=== PATIENT | female | born 1945 | race Caucasian/White ===

== ENCOUNTER 2017-04-30 10:35 | Inpatient (IN) ==
[~2017-04-30 10:35] MED LIST: ACETAMINOPHEN 500 MG TABLET PO ONE; CLINDAMYCIN PB 900 MG/50 ML BAG IV ONE; DEXAMETHASONE 4 MG/ML INJECTION IVP ONE; EPINEPHrine PF 0.25 MG, BUPIVACAINE 0.25% PF 30 ML, MORPHINE SULFATE 15 MG, KETOROLAC I... OPSITE ONE; FAMOTIDINE PB 20 MG/50 ML BAG IV ONE; LIDOCAINE 1% (10mg/ml) 2mL INJ PF SDV ID ONE; METOCLOPRAMIDE 10mg/2ml INJECTION IVP ONE; ONDANSETRON 4 MG/2 ML INJECTION IVP ONE; SALINE FLUSH 10ml SYRINGE IV PRN; TRANEXAMIC ACID 1,000 MG in NS 100 ML IV ONE
[2017-04-30 11:03] VITALS: BMI 29.9
[2017-04-30] MEDS ORDERED: CEFAZOLIN 1 G INJECTION IVP ONE (11:55)
[2017-04-30] MEDS ORDERED: ANESTHESIA MIXTURE 50 ML IV ONE (12:00)
[2017-04-30] MEDS: LR 1,000 ML IV SCH ×2 (12:25→14:50)
[2017-04-30] MEDS: NOZIN NASAL SWAB NAS ONE ×2 (12:30→12:31)
[2017-04-30] MEDS ORDERED: VANCOMYCIN 1,000 MG INJECTION ONE (12:48)
--- NOTE | 2017-04-30 12:55 | Anesthesia Preoperative Report ---
Anesthesia Preoperative Record - Date and Time Date: 04/30/17 Preoperative Diagnosis: Rt TKA Rev T84.84XD Proposed Procedure: Right knee revision NPO Since Date: 04/30/17 NPO Since Time: 00:00 Allergies/Adverse Reactions: Allergies Allergy/AdvReac Type Severity Reaction Status Date / Time codeine Allergy Intermediate MIGRAIINE Verified 04/30/17 11:10 diazepam Allergy Intermediate GOES CRAZY Verified 04/30/17 11:10 hydrocodone Allergy Intermediate GOES CRAZY Verified 04/30/17 11:10 pentazocine Allergy Intermediate HALLUCINATI Verified 04/30/17 11:10 ON temazepam Allergy Intermediate HALLUCINATI Verified 04/30/17 11:10 ON Penicillins Allergy Unknown Verified 04/30/17 11:10 adhesive tape AdvReac Intermediate Skin Peels Verified 04/30/17 11:10 cephalexin AdvReac Mild Itching Verified 04/30/17 11:46 clindamycin AdvReac Mild ITCHING Verified 04/30/17 11:10 - Vital Signs Vital Signs: Temperature 98.3 F 04/30/17 11:01 Pulse Rate 81 04/30/17 11:36 Respiratory Rate 18 04/30/17 11:01 Blood Pressure 210/115 H 04/30/17 11:01 Pulse Oximetry 99 04/30/17 11:01 Height and Weight: Height 5 ft 5.5 in Weight 82.8 kg Body Mass Index 29.9 - Medications Inpatient Medications: Current Medications Lactated Ringer's (Lactated Ringers) 1,000 mls @ 50 mls/hr IV .Q20H MICHELLE Last Admin: 04/30/17 12:25 Dose: 50 mls/hr Propofol 200 mg/ Esmolol HCl 50 mg/ Ketamine HCl 50 mg/Lidocaine HCl 100 mg/ Magnesium Sulfate 1 g/Dexmedetomidine HCl 15 mcg/Sodium Chloride 50 mls @ 1 mls /hr IV INTRAOP ONE PRN Reason: Protocol Stop: 05/02/17 13:59 Sodium Chloride (Iv Flush) 10 - 80 ml IV PRN PRN PRN Reason: Flushing Home Medications: Home Medications Medication Instructions Recorded Confirmed Type Lutein 20 mg PO DAILY #0 01/20/13 04/16/17 History Fluticasone Propionate [Flonase 1 spray EA NOSTRIL DAILY #0 10/24/15 04/16/17 History Allergy Relief] Benzonatate [Tessalon Perles] 100 mg PO Q6H PRN 04/16/17 04/16/17 History Feverfew 1 cap PO BID 04/16/17 04/30/17 History Flaxseed/Omega3,6,9/Fatty Acid 1 cap PO DAILY 04/16/17 04/30/17 History [Flax Seed Oil 1,300 mg Softgel] Furosemide [Lasix] 20 mg PO PRN 04/16/17 04/30/17 History LORazepam [Ativan] 0.5 mg PO HS 04/16/17 04/30/17 History Levothyroxine Sodium [Levoxyl] 125 mcg PO ACB 04/16/17 04/30/17 History Oxycodone/Acetaminophen 5/325 1 tab PO HS 04/16/17 04/30/17 History [Percocet 5/325] Topiramate [Topamax] 50 mg PO BID 04/16/17 04/30/17 History Zolpidem [Ambien] 10 mg PO HS 04/16/17 04/30/17 History Cholestyramine [Cholestyramine 1 unit PO DAILY 04/29/17 04/30/17 History Resin] Is Patient on Beta Lashawn?: No - Medical History Respiratory: Reports: Asthma (w/o status asthmaticus (disorder) per h&p), Bronchitis (h/o) DENIES: Sleep Apnea Cardiovascular: Reports: Hypertension (no meds), Valvular Heart Disease (pt states she has a leaky mitral valve), Other (palpitations with panic attacks) Gastrointestional: Reports: Gastroesophageal Reflux Disease (tx after fundiplication), Ulcer (PUD), Other (IBS, constipation) Neuro/Musculoskeletal: Reports: HX.MS.OSAR (also osteopenia), Back Problems ( also fibromyalgia, scoliosis), Depression Renal/Endocrine: Reports: Thyroid Disease Other History: Reports: Anesthesia Reactions (hard to wake up; history of severe itching in PACU; migraines) - Surgical History Cardiac Surgeries/Treatments: DENIES: Pacemaker GI Surgery/Treatments: Reports: Appendectomy, Cholecystectomy, Colonoscopy, EGD , Other (hemorroidectomy; Lap Adam) Surgery/Treatment: REPORT: Other (MMK x2) Musculoskeletal Surgery/Tx: Reports: Knee Arthroscopy (bilateral), Total Knee Replacement (RtTKA), Other (MULTIPLE LIPOMAS REOVED FROM ARMS AND LEFT THIGH) Reproductive Surgery/Treatment: Reports: Section (X2), Hysterectomy ( RAZ BSO), Other (breast biopsies) DENIES: Mastectomy Anesthesia Reactions: Headache Hx Family Anesthesia Reaction: No History of Motion Sickness: No - Social History Smoking Status: Never smoker Substance Use Type: does not use Alcohol Intake Frequency: former alcohol drinker - Pertinent Findings Laboratory: CBC and BMP 04/30/17 11:16 BMP 04/30/17 11:16 Sodium 146 H Potassium 3.3 L Chloride 108 H Carbon Dioxide 26 BUN 15.0 Creatinine 0.8 Glucose 92 Calcium 9.4 EKG: Sinus Rhythm - Physical Exam Respiratory Exam: Present: lungs clear, bilateral breath sounds equal Cardiovascular Exam: Present: regular rate and rhythm, no murmur - Airway Assessment Mallampati Score: II TMD: 3 Fingerbreadths Neck Extension: good Overall Assessment: no airway concerns - ASA ASA Score: 2 - Plan Anesthesia: General TIVA, General Inhalation Gases - Discussion Discussion: Discussed risks/options/alternatives of anesthesia and questions answered. Patient consents. Nursing pain assessment noted. Present for Discussion: other (none) Attestation Statement: Prior to the delivery of any anesthetic medication, I examined the patient, developed the plan, obtained the patient's consent and discussed the risk and benefits of the procedure with the patient/guardian. - Additional Information Seen by Anesthesia: Yes
[2017-04-30] MEDS ORDERED: MIDAZOLAM 2mg/2ml INJECTION ONE (13:04)
[2017-04-30] MEDS ORDERED: PROPOFOL 20 ML ONE (13:05)
[2017-04-30] MEDS ORDERED: FentaNYL 250 MCG/5 ML INJECTION ONE (13:42)
[2017-04-30] MEDS ORDERED: VANCOMYCIN 1,000 MG INJECTION IAR ONE (14:49)
[2017-04-30] MEDS ORDERED: ROPIVACAINE 0.5% (5mg/ml) 30ml INJ ONE (15:28)
--- NOTE | 2017-04-30 15:57 | Anesthesia Procedure Note ---
Peripheral Nerve Blockade - Procedure Physician: Jn Poe MD Date: 04/30/17 Surgical Procedure: Right TKR Discussion: Discussed risks/options/alternatives of anesthesia and questions answered. Patient consents. Nursing pain assessment noted. Block Start: 15:42 Block Stop: 15:46 Blocked Employed: Adductor Canal Indication: Post-Operative Pain Approach: Right Side Confirmed Position: Supine Patient: Consent, Risks/Benefits Discussed, Informed, Post Block Act. Discussed IV Sedation: No Initial Vital Signs: Temperature 98.3 F 04/30/17 11:01 Temperature Source Oral 04/30/17 11:01 Pulse Rate 80 04/30/17 11:01 Respiratory Rate 18 04/30/17 11:01 Blood Pressure 210/115 H 04/30/17 11:01 Blood Pressure Mean 146 04/30/17 11:01 Blood Pressure Position Sitting 04/30/17 11:01 Pulse Oximetry 99 04/30/17 11:01 Oxygen Delivery Method 04/30/17 11:01 Post Vital Signs: Temperature 97.1 F 04/30/17 15:39 Pulse Rate 84 04/30/17 15:39 Respiratory Rate 16 04/30/17 15:39 Blood Pressure 177/93 H 04/30/17 15:39 Pulse Oximetry 95 04/30/17 15:39 Initial Pain Pain Score: 0 Post Block Pain Score: 0 Prep: Chlorhexadine/ETOH Ultrasound Used?: Yes - Nerve Simulator Paresthesia/Pain: None - Injectate Ropivacaine (%): 0.5 Ropivacaine (mL): 15 Was Epi 1:200,000 Used?: No Injection: Injection made incrementally with constant monitoring and aspiration every 5 ml
[2017-04-30] MEDS ORDERED: LABETALOL 100mg/20ml INJECTION IVP ONE (16:14)
--- NOTE | 2017-04-30 16:18 | XRay Report ---
Indication: postoperative image PROCEDURE: XR knee RT 2V: Encounter: Initial Comparison: February 20, 2017 Findings: Postoperative changes of right total knee replacement are seen. There is expected postoperative subcutaneous gas. No evidence of hardware failure or acute fracture. No retained radiopaque surgical instruments or sponges. Overlying material causing artifact. Impression: New right total knee prosthesis without evidence of immediate complication. .
--- NOTE | 2017-04-30 16:40 | Anesthesia Postoperative Note ---
- Date and Time Date: 04/30/17 Time: 16:39 - Status Patient Participated in Evaluation: Patient Participated in Person Vital Signs: Temperature 97.1 F 04/30/17 15:39 Pulse Rate 78 04/30/17 16:20 Respiratory Rate 15 04/30/17 16:20 Blood Pressure 195/102 H 04/30/17 16:20 Pulse Oximetry 98 04/30/17 16:20 Respiratory Function: Airway Patent Cardiovascular Function: Regular Pulse EKG: Sinus Rhythm Mental Status: Alert and Oriented Pain Intensity: 3 Hydration: IV Infusing Complications During Recover: None Apparent Post Anesthesia Care Notes: pts bp elevated but lower than preopertive bp. Does not take bp meds at home. - Follow-Up Instructions Instructions: Per Surgeon
[2017-04-30] MEDS ORDERED: LORazepam 1 MG TABLET PO PRN (17:50)
[2017-04-30] MEDS ORDERED: NOZIN NASAL SWAB NAS ONE (17:50)
[2017-04-30] MEDS ORDERED: DiphenhydrAMINE 50 MG/ML INJECTION IVP PRN (17:50)
[2017-04-30] MEDS ORDERED: ONDANSETRON 4 MG/2 ML INJECTION IVP PRN (17:50)
[2017-04-30] MEDS: NS 1,000 ML IV SCH (17:52)
[2017-04-30] MEDS: ACETAMINOPHEN 325 MG TABLET PO SCH ×2 (17:52→22:28)
[2017-04-30] MEDS ORDERED: HYDRALAZINE 20 MG/ML INJECTION IVP PRN (18:24)
--- NOTE | 2017-04-30 19:36 | Consult Note ---
Consult Information - Data of Consult Consult date: 04/30/17 Requesting Physician: Jn Poe MD Primary Care Provider: Roman Garcia MD Family Provider: Roman Garcia MD - Consult Narrative Reason for consult: Hypertension History of present illness: Ernestina is a 71 yr old female who was admitted this morning under the care of Dr Poe for a planned Right total knee revision. Pre-operatively this morning her blood pressure was elevated at 210/115. She declined antihypertensives, she tolerated the procedure well. However, in PACU postoperatively became hypertensive again 190s to 200s over 100. She was given a one-time dose of labetalol with minimal response. Given persistent hypertension. The hospitalist services were consulted for further evaluation and treatment. As seen once she has return to the surgical unit with nursing staff at the bedside. She reports long-standing history of hypertension and she removed herself from all of her antihypertensives approximately 3 years ago and she felt that they were causing her blood pressure to increase. She reports her and her primary care provider, Dr. Garcia came to a "agreement" that her goal blood pressure would be 140-160/80-100. Patient is consistently adamant that she "knows her body better than anyone else". At time of examination we discussed risks of patient's blood pressure been sustained over 200. She is willing to try one-time dose of hydralazine IV. She feels that she is getting "geared up" for an anxiety-panic attack, and she does request her evening dose of Ativan during examination. She reports having auditory hallucinations generally in the presence of a "quacking duck". It is at this time she knows her blood pressure is extremely elevated and this often triggers anxiety and migraine. Patient denies having any pain, dizziness, lightheadedness, visual changes, shortness of breath, chest pain, GI concerns. She does go into extensive detail regarding political conspiracy theories and current book that she is enjoying. We discussed the importance of blood pressure management overnight. She feels that once she has calmed herself down and has taken her Ambien at at bedtime her blood pressure will be fine. Past Medical History Hypertension Chronic back pain Asthma Anxiety Fibromyalgia GERD with duodenal ulcer High cholesterol Hypothyroidism History of migraines Insomnia IBS Osteoarthritis Restless leg syndrome Macular degeneration Surgical History: Colonoscopy, X2, Rt knee scope 2009, Rt TKA 2009, Lt knee scope 2012, Cholecystectomy 2006, Breast Biopsy X4, CTR 1995 . EGD-2014 , appendectomy, cholecystectomy, RAZ- BSO Family History Updates: Mother- Thyroid disease,Colon cancer,Bleeding disorder. Father- Heart failure,High cholesterol, High blood pressure,Heart attack - Social History Smoking status: Never smoker Substance use type: does not use Alcohol intake frequency: does not drink Housing: house Current residence: Apartment/Private Home Social history: Primary care provider, Dr. Garcia Review of Systems All systems PM: 10-point ROS was reviewed, no additional remarkable complaints except Review of systems: At time of examination. Patient denies all review of systems other than feeling anxious - Psychiatric Psychiatric: Present: as per HPI, anxiety Medications Home Medications Medication Instructions Recorded Confirmed Type Lutein 20 mg PO DAILY #0 01/20/13 04/16/17 History Fluticasone Propionate [Flonase 1 spray EA NOSTRIL DAILY #0 10/24/15 04/16/17 History Allergy Relief] Benzonatate [Tessalon Perles] 100 mg PO Q6H PRN 04/16/17 04/16/17 History Feverfew 1 cap PO BID 04/16/17 04/30/17 History Flaxseed/Omega3,6,9/Fatty Acid 1 cap PO DAILY 04/16/17 04/30/17 History [Flax Seed Oil 1,300 mg Softgel] Furosemide [Lasix] 20 mg PO PRN 04/16/17 04/30/17 History LORazepam [Ativan] 0.5 mg PO HS 04/16/17 04/30/17 History Levothyroxine Sodium [Levoxyl] 125 mcg PO ACB 04/16/17 04/30/17 History Oxycodone/Acetaminophen 5/325 1 tab PO HS 04/16/17 04/30/17 History [Percocet 5/325] Topiramate [Topamax] 50 mg PO BID 04/16/17 04/30/17 History Zolpidem [Ambien] 10 mg PO HS 04/16/17 04/30/17 History Cholestyramine [Cholestyramine 1 unit PO DAILY 04/29/17 04/30/17 History Resin] Allergies Allergy/AdvReac Type Severity Reaction Status Date / Time codeine Allergy Intermediate MIGRAIINE Verified 04/30/17 11:10 diazepam Allergy Intermediate GOES CRAZY Verified 04/30/17 11:10 hydrocodone Allergy Intermediate GOES CRAZY Verified 04/30/17 11:10 pentazocine Allergy Intermediate HALLUCINATI Verified 04/30/17 11:10 ON temazepam Allergy Intermediate HALLUCINATI Verified 04/30/17 11:10 ON Penicillins Allergy Unknown Verified 04/30/17 11:10 adhesive tape AdvReac Intermediate Skin Peels Verified 04/30/17 11:10 cephalexin AdvReac Mild Itching Verified 04/30/17 11:46 clindamycin AdvReac Mild ITCHING Verified 04/30/17 11:10 Exam Vital Signs: Temperature 98.3 F 04/30/17 17:04 Pulse Rate 64 04/30/17 18:55 Respiratory Rate 17 04/30/17 17:00 Blood Pressure 213/98 H 04/30/17 18:55 Pulse Oximetry 98 04/30/17 18:30 Height/Weight/BMI: Height 1.66 m Weight 82.8 kg Body Mass Index 29.9 - Constitutional Present: no acute distress, well nourished, well developed - Routine HEENT Exam Eye: Present: EOMI ENT: Present: mucous membranes moist, dentition normal - Routine Respiratory Exam Present: CTA bilaterally. Absent: wheezes - Routine Cardiovascular Exam Present: RRR, S1, S2. Absent: murmur - Routine Abdominal Exam Present: soft, normoactive bowel sounds, non distended. Absent: tenderness - Routine Extremities Exam Present: pulses intact - Routine Back/Spine/Pelvis Exam Back/Spine: Present: full ROM - Routine Skin Exam Present: intact, dry, warm - Routine Neurological Exam Present: alert, oriented X3, CN II-XII intact, vision grossly intact, hearing grossly intact - Routine Psychiatric Exam Present: cooperative, anxious Results - Labs CBC & Chem 7: 04/30/17 11:16 Assessment and Plan (1) Uncontrolled hypertension Current visit: Yes Status: Acute (2) S/P revision of total knee Current visit: Yes Status: Acute Assessment and Plan: Impression Uncontrolled hypertension Status post knee revision-right Hypernatremia Hypokalemia Anxiety Hyperlipidemia Hypothyroidism Fibromyalgia Headache-RLL 04/30/17 Plan Orthopedic management as per Dr. Poe Lengthy, detailed conversation is had with patient regarding uncontrolled hypertension and increased risk of stroke. Patient is quite adamant that she is not willing to take medication, although she does consent to a one-time dose of hydralazine 10 milligrams IV during examination. She feels that her uncontrolled hypertension is more related to her anxiety and this current environment She did take oral Ativan 1 milligram during examination. At this point, we would recommend a goal blood pressure less than 170 systolic. Encourage use of hydralazine 10 milligrams IV to manage this. Recommend taking all blood pressures manually as patient feels this is more accurate representation of current blood pressure. Postoperative orders reviewed. Patient does have scheduled Decadron IV, This may rise blood pressure. Regarding hypokalemia, will give patient a one-time dose of oral potassium supplementation. Will recheck BMP tomorrow morning. The hospitalist services will continue to follow patient for management of her hypertension during her stay. At time of discharge medical care will return to primary care provider, Dr. Garcia DVT Prophylaxis: SCD's Resuscitation Status: Full Code - Time spent with patient Time with patient PN: 35 minutes - Physician Narrative Physician: Annette Carreon MD Narrative: Date: 04/30/17 Time: 2209 I have independently evaluated and examined this patient. I reviewed the chart, the patient's history, and the FEED RESEARCH TECHNICIAN/PA's documented findings as above. We discussed and formulated the assessment and plan as above with additions as below: Mrs. Mejia was seen after arriving on the surgical unit early this evening after discussing case with Irvin HUNT. The patient reiterated her past experience with antihypertensives causing her blood pressure today increase (in addition to her belief that she has paradoxic response to many classes of medications) and concern that blood pressure medications will trigger migraines. She reports that she had already started to have a headache when I saw her although she denied visual changes. I pointed out that sustained systolic blood pressures greater than 200 are associated with headache and I'm not surprised by that development. She recalls having previously taken propranolol and some Dyazide combination but could not recall the side effects she experienced. It is noted that the patient received 10 mg dexamethasone preoperatively today and is scheduled for additional dexamethasone tonight. NAD, alert, talkative/anxious Respirations nonlabored, breath sounds clear Regular cardiac rhythm, S1-S2 Extremities without edema Manual blood pressure taken while I was present-213/98 Agree with trial of hydralazine/Ativan for management. Stroke risk discussed with patient when I visited with her in addition to possibility that headache is due to sustained systolic hypertension rather than medications. Steroids may be contributing to sustained hypertension seen today. Outpatient records reviewed-last truly normal blood pressure (126/80) was in September 2015; subsequently blood pressures have consistently had systolic readings above 150 in the office although patient has reported normal blood pressure readings (undefined) as an outpatient during that time. At high risk for complications. Hospital Course Summary Disclaimer: The visit summary below is not to be considered part of the above Progress Note. Hospital Course: Impression Uncontrolled hypertension Status post knee revision-right Hypernatremia Hypokalemia Anxiety Hyperlipidemia Hypothyroidism Fibromyalgia Plan Orthopedic management as per Dr. Poe Lengthy, detailed conversation is had with patient regarding uncontrolled hypertension and increased risk of stroke. Patient is quite adamant that she is not willing to take medication, although she does consent to a one-time dose of hydralazine 10 milligrams IV during examination. She feels that her uncontrolled hypertension is more related to her anxiety and this current environment She did take oral Ativan 1 milligram during examination. At this point, we would recommend a goal blood pressure less than 170 systolic. Encourage use of hydralazine 10 milligrams IV to manage this. Recommend taking all blood pressures manually as patient feels this is more accurate representation of current blood pressure. Postoperative orders reviewed. Patient does have scheduled Decadron IV, This may rise blood pressure. Regarding hypokalemia, will give patient a one-time dose of oral potassium supplementation. Will recheck BMP tomorrow morning. The hospitalist services will continue to follow patient for management of her hypertension during her stay. At time of discharge medical care will return to primary care provider, Dr. Garcia
[2017-04-30] MEDS ORDERED: SENNOSIDES 8.6 MG TABLET PO SCH (21:00)
[2017-04-30] MEDS ORDERED: ZOLPIDEM 10 MG TABLET PO SCH (21:00)
[2017-04-30] MEDS: CHOLESTYRAMINE LIGHT 4 G PACKET PO SCH (22:25)
[2017-04-30] MEDS: DEXAMETHASONE 20 MG/5 ML INJECTION IVP SCH (22:27)
[2017-04-30] MEDS: NOZIN NASAL SWAB NAS SCH (22:27)
[2017-04-30] MEDS: DOCUSATE SODIUM 100 MG CAPSULE PO SCH (22:29)
[2017-04-30] MEDS: TOPIRAMATE 25 MG TABLET PO SCH (22:30)
[2017-04-30] MEDS: ASPIRIN *EC* 81 MG TABLET PO SCH (22:30)
[2017-04-30] MEDS: CEFAZOLIN 2 G in NS 100 ML IV SCH (22:35)
[2017-04-30] MEDS: Oxycodone *IR* 5 MG TABLET PO PRN (22:40)
[2017-04-30] MEDS: LEVOTHYROXINE 125 MCG TABLET PO SCH (22:40)
[2017-05-01] MEDS: DiphenhydrAMINE 25 MG CAPSULE PO PRN ×3 (01:42→16:07)
[2017-05-01] MEDS: DEXAMETHASONE 20 MG/5 ML INJECTION IVP SCH (05:09)
[2017-05-01] MEDS: CEFAZOLIN 2 G in NS 100 ML IV SCH (05:09)
[2017-05-01] MEDS: Oxycodone *IR* 5 MG TABLET PO PRN ×3 (05:16→16:06)
[2017-05-01] MEDS: NOZIN NASAL SWAB NAS SCH ×2 (05:24→13:11)
[2017-05-01] MEDS: LEVOTHYROXINE 125 MCG TABLET PO SCH (05:30)
--- NOTE | 2017-05-01 08:00 | Operative Note ---
DATE OF PROCEDURE 04/30/2017 PREOPERATIVE DIAGNOSIS Right total knee arthroplasty instability. POSTOPERATIVE DIAGNOSIS Right total knee arthroplasty instability. PROCEDURE Spacer exchange, right total knee arthroplasty. SURGEON Jn Poe MD DATA MANAGEMENT Irvin Velasquez PA-C COMPLICATIONS None. ANESTHESIA General. EBL AND FLUIDS Please see [facility] records. DESCRIPTION OF PROCEDURE Mrs. Mejia and her right knee were identified and marked in the preoperative holding area. She was brought back to the operating suite and placed spine on the operating table. She was placed under general anesthesia. The right lower extremity was prepped and draped in my normal sterile fashion. Time-out was performed. The knee was taken through a range motion. She had increased laxity in flexion and she did slightly hyperextend. An anterior midline incision was utilized. Sharp dissection was carried down to the capsule and then a medial parapatellar arthrotomy was performed. The knee components themselves looked to be in good condition without signs of excessive wear and no signs of loosening. The patient did have quite a bit of anterior drawer sign with the knee flexed past 90 degrees. I removed her previous spacer. Some minor scar tissue was removed from the medial aspect of the knee. I then trialed with a 12 mm and a 14 mm spacer. The 14 felt a little tight but 12 felt much better. She still could get a full extension and she had more stability with anterior stitch bonding machine drawer in 90 degrees flexion and 110 degrees flexion. The patella continued to track well. The knee was thoroughly irrigated and the final 12 medial pivot spacer was placed. I then again fully irrigated the knee. Joint cocktail was injected into the soft tissues. 1 g of vancomycin powder was placed into the knee joint and the arthrotomy was closed with #1 Vicryl. The subcutaneous tissue was closed with 2-0 Vicryl followed by running 4-0 Monocryl followed by Dermabond and sterile dressing. She was then allowed to awaken from general anesthesia and taken to the recovery room under the care of Anesthesia. She tolerated the procedure well and there were no complications. MARY
--- NOTE | 2017-05-01 08:50 | Orthopedic Progress Note ---
Date: Date: 05/01/17 Time: 846 Subjective/Severity of Illness: Ernestina is doing very well this AM. Denies much knee pain. She has been mobile with good tolerance. Denies CP, cough, dyspnea, SOA or other concerns. BPs are improved this AM. See hospitalist consult note. Denies headache. She is hopeful to go home today. She reports the knee feels more stable. Orthopedic Objective PO Vital signs: Temperature 98.1 F 05/01/17 04:00 Pulse Rate 85 05/01/17 07:44 Respiratory Rate 18 05/01/17 07:44 Blood Pressure 170/80 H 05/01/17 07:44 Pulse Oximetry 100 05/01/17 07:44 Height and Weight: Height 5 ft 5.5 in Weight 190 lb 4.143 oz Body Mass Index 29.9 - Constitutional General Appearance: Present: alert, cooperative, no acute distress - Respiratory Exam Present: non-labored - Extremities Exam Extremities: Present: pulses intact. Absent: calf tenderness - Knee Exam Knee Exam: Present: ROM (0-120 degrees this AM.) - Surgical Site Incision: Mepilex dressing intact, no drainage - Integumentary Exam Present: pink, warm, dry - Neurological Exam Present: no deficits - Psychiatric Exam Present: alert, normal affect - Labs Result Diagrams: 05/01/17 04:14 05/01/17 04:14 Abnormal lab results 04/30/17 05/01/17 Range/Units 11:16 04:14 Sodium 146 H (134-144) MEQ/L Potassium 3.3 L (3.6-5) MEQ/L Chloride 108 H 110 H (98-107) MEQ/L Carbon Dioxide 21 L (22-30) MEQ/L Glucose 153 H (65-110) MG/DL Calculated Osmolality 282 H (261-280) MOSM/KG H & H 05/01/17 Range/Units 04:14 Hgb 13.5 (12-16) GM/DL Hct 42.3 (36-46) % Orthopedic Assessment and Plan (1) Painful total knee replacement, right Status: Acute Assessment and Plan: Pt feels the knee is more stable. BP improved this AM. Will f/u with Dr Garcia as outpatient. She has been mobile with good tolerance. Aspirin and SCDs for DVT coverage. Continue ASA for 6 weeks. PT / OT to work with exercises and discharge routine. CM for discharge needs. Follow up in 3 weeks. - Anticoagulation Therapy Anticoagulation: ASA 81 mg PO BID x6 weeks Hospital Course Summary Disclaimer: The visit summary below is not to be considered part of the above Progress Note. Hospital Course: Impression Uncontrolled hypertension Status post knee revision-right Hypernatremia Hypokalemia Anxiety Hyperlipidemia Hypothyroidism Fibromyalgia Plan Orthopedic management as per Dr. Poe Lengthy, detailed conversation is had with patient regarding uncontrolled hypertension and increased risk of stroke. Patient is quite adamant that she is not willing to take medication, although she does consent to a one-time dose of hydralazine 10 milligrams IV during examination. She feels that her uncontrolled hypertension is more related to her anxiety and this current environment She did take oral Ativan 1 milligram during examination. At this point, we would recommend a goal blood pressure less than 170 systolic. Encourage use of hydralazine 10 milligrams IV to manage this. Recommend taking all blood pressures manually as patient feels this is more accurate representation of current blood pressure. Postoperative orders reviewed. Patient does have scheduled Decadron IV, This may rise blood pressure. Regarding hypokalemia, will give patient a one-time dose of oral potassium supplementation. Will recheck BMP tomorrow morning. The hospitalist services will continue to follow patient for management of her hypertension during her stay. At time of discharge medical care will return to primary care provider, Dr. Garcia
[2017-05-01] MEDS ORDERED: POLYETHYL GLYCOL 3350 17gm PACKET PO SCH (09:00)
[2017-05-01] MEDS ORDERED: FLUTICASONE NASAL SPRAY 50mcg EA NOSTRIL SCH (09:00)
--- NOTE | 2017-05-01 09:01 | Discharge Summary ---
Orthopedic Discharge Info Date of admission: 04/30/17 10:52 Anticipated date of discharge: 05/01/17 Primary care physician: Roman Garcia MD Attending Physician: Jn Poe MD Consults: 04/30/17 10:47 Consult to Anesthesiology [CONS] Routine Reason For Exam: Preoperative Assessment 04/30/17 16:55 Physician Consult [CONS] Routine Consulting Provider: Annette Carreon Reason For Exam: Hypertension Ordering Provider has Notified Sammying Machine Operator: Yes 04/30/17 17:50 Case Management Consult [CONS] Routine Reason For Exam: Discharge Planning DME-Walker [CONS] Routine Height: 5 ft 5.5 in Weight: 182 lb 8.684 oz Total Joint Outpatient Therapy [CONS] Routine Comment: Remove dressing in 2 weeks - Discharge Diagnosis (1) Painful total knee replacement, right Status: Acute - Procedures Procedures: Procedures Total knee replacement (06/07/09) Revision of poly space component of R TKA 04/30/17. - Laboratory Result Diagrams: 05/01/17 04:14 05/01/17 04:14 Laboratory: Abnormal lab results 04/30/17 05/01/17 Range/Units 11:16 04:14 Sodium 146 H (134-144) MEQ/L Potassium 3.3 L (3.6-5) MEQ/L Chloride 108 H 110 H (98-107) MEQ/L Carbon Dioxide 21 L (22-30) MEQ/L Glucose 153 H (65-110) MG/DL Calculated Osmolality 282 H (261-280) MOSM/KG H & H 05/01/17 Range/Units 04:14 Hgb 13.5 (12-16) GM/DL Hct 42.3 (36-46) % Orthopedic Discharge HPI - HPI Comments Do was admitted for a painful right TKA that was found to be unstable. Her work up did not suggest loosening of the implants or infection. It was felt that revising the spacer may correct her instability. Details may be found in the admission H&P. Orthopedic Hospital Course Hospital course: 05/01/17 08:59 After appropriate preoperative clearance and signing of operative consent, the patient was given IV antibiotics, according to orthopedic protocol. The patient was taken to the operating room and underwent exchange of the poly spacer to a thicker implant in her previous Rt total knee . Following surgery, antibiotics were discontinued less than 24 hours according to joint protocol. Appropriate anticoagulants were initiated and SCDs added for DVT prevention. She had significant hypertension both before and after surgery for which the hospitalist service was consulted to manage. She will f/u with Dr Garcia after discharge for this problems. She had a migraine headache but felt comfortable going home to manage this. The dressing was clean, dry, and intact. Pain control was obtained via multimodal approach. Bowel motivation addressed with scheduled and PRN medications. Early mobilization was initiated through PT services. Discharge arrangements made by a collaborative effort between the patient and Case Management. Follow-up is scheduled in 2-3 weeks. Discharge instructions given by orthopedic providers and nursing staff at discharge. Discharge condition was good. 05/01/17 15:51 Care extended to > 2 midnight stays?: No Discharge Plan - Med Rec/Dispo Referrals/Follow Up: Jn Poe MD [Physician] - 05/22/17 10:30 am Hakeem Instructions: [facility] Postop Instructions Additional Instructions: [facility] ON 05/02/2017 AT 4:00PM FOR PHYSICAL THERAPY EVAL. PHONE [phone] Prescriptions: New Acetaminophen [Tylenol] 650 mg PO QID tab Aspirin *EC* [Ecotrin] 81 mg PO BID tab Docusate Sodium [Colace] 100 mg PO BID cap Milk of Magnesia [Mom] 30 ml PO DAILY udc Oxycodone *IR* [Roxicodone *Ir*] 5 - 15 mg PO Q3H PRN #50 tab PRN Reason: Breakthrough Pain PEG 3350 17gm PACKET [Miralax] 17 gm PO DAILY packet Hydralazine [Apresoline] 1 tab PO [facility] #120 tab Continue Lutein 20 mg PO DAILY #0 Levothyroxine Sodium [Levoxyl] 125 mcg PO ACB Feverfew 1 cap PO BID Furosemide [Lasix] 20 mg PO PRN LORazepam [Ativan] 0.5 mg PO HS Topiramate [Topamax] 50 mg PO BID Zolpidem [Ambien] 10 mg PO HS Benzonatate [Tessalon Perles] 100 mg PO Q6H PRN PRN Reason: Cough Cholestyramine [Cholestyramine Resin] 1 unit PO DAILY Fluticasone Propionate [Flonase Allergy Relief] 1 spray EA NOSTRIL DAILY #0 Flaxseed/Omega3,6,9/Fatty Acid [Flax Seed Oil 1,300 mg Softgel] 1 cap PO DAILY Discontinued Oxycodone/Acetaminophen 5/325 [Percocet 5/325] 1 tab PO HS - Disposition 01 Discharged Home, Self-Care - Dismissal Complete Discharge Instructions are:: Complete, Incomplete
[2017-05-01] MEDS: ACETAMINOPHEN 325 MG TABLET PO SCH (09:18)
[2017-05-01] MEDS: ASPIRIN *EC* 81 MG TABLET PO SCH ×2 (09:19→13:10)
[2017-05-01] MEDS: DOCUSATE SODIUM 100 MG CAPSULE PO SCH (09:19)
[2017-05-01] MEDS: TOPIRAMATE 25 MG TABLET PO SCH (09:20)
[2017-05-01] MEDS: CHOLESTYRAMINE LIGHT 4 G PACKET PO SCH (09:23)
[2017-05-01] MEDS ORDERED: LORazepam 0.5 MG TABLET PO PRN (10:58)
[2017-05-01] MEDS: ACETAMINOPHEN 500 MG TABLET PO SCH ×2 (11:08→16:05)
[2017-05-01 11:16] VITALS: PULSE 70
[2017-05-01] MEDS: NS 1,000 ML IV SCH (11:42)
[2017-05-01] MEDS: HYDRALAZINE 10 MG TABLET PO SCH ×2 (13:10→17:59)
[2017-05-01] MEDS ORDERED: SENNOSIDES 8.6 MG TABLET PO PRN (15:29)
[2017-05-01 15:49] VITALS: BP 166/78; RESP 14; TEMP 98.3; O2SAT 100
--- NOTE | 2017-05-01 16:05 | Progress Note ---
- Date 05/01/17 Subjective: Patient was seen sitting in her bed this morning. She reports the hydralazine worked for her blood pressure and she didn't have any side effects. She would be interested in trying this at home but states she will only take 5 mg once a day to start with as she doesn't want to cause a migraine. Apparently, she has had this problem with previous blood pressure medications. She currently has a headache, but reports it is "not bad." She has no chest pain, shortness of breath, nausea or vomiting. Objective Vital signs: Temperature 98.3 F 05/01/17 15:42 Pulse Rate 70 05/01/17 15:42 Respiratory Rate 14 05/01/17 15:42 Blood Pressure 166/78 H 05/01/17 15:42 Pulse Oximetry 100 05/01/17 15:42 Height/Weight/BMI: Height 1.66 m Weight 86.3 kg Body Mass Index 29.9 - Constitutional Present: no acute distress, well nourished, well developed - Routine Respiratory Exam Present: CTA bilaterally. Absent: wheezes - Routine Cardiovascular Exam Present: RRR, murmur - Routine Abdominal Exam Present: soft, normoactive bowel sounds, non distended. Absent: tenderness - Routine Extremities Exam Present: no edema, normal capillary refill - Routine Skin Exam Present: dry, warm - Routine Neurological Exam Present: alert, oriented X3 - Routine Lymphatic Exam Lymphatic: Absent: adenopathy - Routine Psychiatric Exam Present: normal affect, cooperative Results - Labs CBC & Chem 7: 05/01/17 04:14 05/01/17 04:14 Assessment and Plan (1) Uncontrolled hypertension Status: Acute (2) S/P revision of total knee Status: Acute Assessment and Plan: Impression Hypertension Status post knee revision-right Hypernatremia Hypokalemia Anxiety Hyperlipidemia Hypothyroidism Fibromyalgia Headache Plan Orthopedic management as per Dr. Poe Patient being discharged today. Her blood pressure came down nicely after the IV hydralazine last evening. She is interested in trying this at home, but is not interested in taking it 4 times a day as is recommended; however, in her case, having her take something as opposed to nothing, is a start. She was given a prescription for 10 mg to take 4 times a day, she plans on taking a half a pill daily to start with. She will follow-up with Dr. Garcia. - Physician Narrative Physician: Annette Carreon MD Narrative: Date: 05/01/17 Time: 2039 I have independently evaluated and examined this patient. I reviewed the chart, the patient's history, and the PNEUMATIC SYSTEMS OPERATOR/PA's documented findings as above. We discussed and formulated the assessment and plan as above with additions as below: Mrs. Mejia was seen late this morning and again late this afternoon prior to discharge. Headache had intensified to a fairly severe migraine by late morning when she expressed frustration that her herbal product was not available for use alternating with narcotics as that is her typical regimen. Tylenol was switched from 325 mg to 500 mg per patient request. She reported some photophobia and diplopia which she attributed to the antibiotic she was receiving because she always has double vision when she receives higher dose antibiotics IV. She felt that multiple individuals wearing perfume and fragrant lotions was contributing to the headache. When reevaluated later in the day the headache was a little bit better. It's noted that she took hydralazine at both noon and prior to discharge. Fatigued-appearing female but alert and fluent speech, anxious EOMI, facial structure symmetric Respirations nonlabored, good airflow, breath sounds clear Moving upper extremities symmetrically Blood pressure is improved from yesterday and she is tolerated hydralazine thus far. Plan discharge on hydralazine as described above. Systolic blood pressure today generally about 165. Patient will continue usual medications for management of recurrent migraines at discharge-she did not describe this migraine is being atypical. Hospital Course Summary Disclaimer: The visit summary below is not to be considered part of the above Progress Note. Hospital Course: Impression Uncontrolled hypertension Status post knee revision-right Hypernatremia Hypokalemia Anxiety Hyperlipidemia Hypothyroidism Fibromyalgia Plan Orthopedic management as per Dr. Poe Lengthy, detailed conversation is had with patient regarding uncontrolled hypertension and increased risk of stroke. Patient is quite adamant that she is not willing to take medication, although she does consent to a one-time dose of hydralazine 10 milligrams IV during examination. She feels that her uncontrolled hypertension is more related to her anxiety and this current environment She did take oral Ativan 1 milligram during examination. At this point, we would recommend a goal blood pressure less than 170 systolic. Encourage use of hydralazine 10 milligrams IV to manage this. Recommend taking all blood pressures manually as patient feels this is more accurate representation of current blood pressure. Postoperative orders reviewed. Patient does have scheduled Decadron IV, This may rise blood pressure. Regarding hypokalemia, will give patient a one-time dose of oral potassium supplementation. Will recheck BMP tomorrow morning. The hospitalist services will continue to follow patient for management of her hypertension during her stay. At time of discharge medical care will return to primary care provider, Dr. Garcia
[2017-05-02] MEDS ORDERED: BISACODYL 10 MG SUPPOSITORY RECTALLY SCH (20:00)
== END 2017-05-01 18:00 | disposition home or self-care (01) | DRG 560 ==
LOC: NMC.PERIOP 10:35 → SRG 17:06
PROVIDERS: ADMIT Orthopaedic Surgery; ATTEND Orthopaedic Surgery

== ENCOUNTER 2017-07-29 17:42 | Inpatient (IN) ==
[2017-07-29] MEDS ORDERED: SALINE FLUSH 10ml SYRINGE IVF PRN (18:36)
[2017-07-29] MEDS ORDERED: LABETALOL 100mg/20ml INJECTION IVP ONE ×3 (18:38→20:46)
--- NOTE | 2017-07-29 19:07 | Emergency Department Report ---
Dizziness HPI - General Chief Complaint: Dizziness <Alia Grider 07/29/17 19:17> Stated Complaint: dizzy, tingling in arms, high bp <Alia Grider 07/29 19:17> Source: patient, family <Alia Grider 07/29/17 19:17> Mode of arrival: ambulatory <Alia Grider 07/29/17 19:17> Limitations: no limitations <Alia Grider 07/29/17 19:17> - History of Present Illness HPI Narrative: Pt presents with a variety of complaints including headache, HTN, vision changes , and feeling as though her "head is spinning". Pt noted onset of symptoms to be late afternoon. She took an Ativan and tried to rest without success. Pt is reporting photophobia to her left eye. She states when left eye hurts it is a food allergy headache but when her right eye hurts it is a stress migraine Pt is hyperverbal and it is difficult for her to stay on topic. Daughter reports this is very unusual for patient and pt reported to her she has no recollection of about 2 hours from this afternoon. <Alia Grider 07/29/17 21:47> MD complaint: dizziness <Alia Grider 07/29/17 19:17> Onset (ago): hour(s) <Alia Grider 07/29/17 19:17> Timing: sudden onset <Alia Grider 07/29/17 19:17> Description: lightheadedness <Alia Grider 07/29/17 19:17> History of similar episodes: No <Alia Grider 07/29/17 19:17> History of trauma: No <Alia Grider 07/29/17 19:17> - Related Data Home Medications Medication Instructions Recorded Confirmed Lutein 20 mg PO DAILY #0 01/20/13 07/29/17 Fluticasone Propionate [Flonase 1 spray EA NOSTRIL BID #0 10/24/15 07/29/17 Allergy Relief] Flaxseed/Omega3,6,9/Fatty Acid 1 cap PO BID 04/16/17 07/29/17 [Flax Seed Oil 1,300 mg Softgel] Furosemide [Lasix 20 mg Tab] 10 mg PO PRN PRN 04/16/17 07/29/17 Zolpidem [Ambien] 5 mg PO HS 04/16/17 07/29/17 Bisacodyl [Laxative] 5 mg PO HS 07/29/17 07/29/17 Calcium Carb/D3/Magnesium/Zinc 1 tab PO DAILY 07/29/17 07/29/17 [Hong Mag Zinc + D3 Tablet] Carboxymethylcellulos/Glycerin 1 drop EACH EYE QID 07/29/17 07/29/17 [Refresh Optive Eye Drops] Cholecalciferol (Vitamin D3) 10,000 unit PO DAILY 07/29/17 07/29/17 [Vitamin D3] Cholestyramine (with Sugar) 4 gm PO DAILY 07/29/17 07/29/17 [Cholestyramine Packet] Doxylamine Succinate [Sleep Aid] 25 mg PO HS 07/29/17 07/29/17 Feverfew 760 mg PO Q2H PRN 07/29/17 07/29/17 Hydralazine [Apresoline] 20 mg PO DAILY 07/29/17 07/29/17 Hypochlorous Acid/Sodium Chlor 1 spray EACH EYE DAILY 07/29/17 07/29/17 [Avenova Lid & Lash [place]] Ketotifen Fumarate [Zaditor] 1 drop EACH EYE PRN PRN 07/29/17 07/29/17 LORazepam [Lorazepam] 0.5 mg PO HS 07/29/17 07/29/17 Lactobacillus Acidophilus 2 cap PO DAILY 07/29/17 07/29/17 [Probiotic] Levothyroxine Sodium 125 mcg PO DAILY 07/29/17 07/29/17 [Levothyroxine Sodium] Loratadine [Claritin] 10 mg PO BID 07/29/17 07/29/17 Oxycodone/Acetaminophen 5/325 1 - 2 tab PO Q6H PRN 07/29/17 07/29/17 [Percocet 5/325] Propylene Glycol [Systane Balance] 1 drop EACH EYE QID 07/29/17 07/29/17 Topiramate [Topamax] 50 mg PO BID 07/29/17 07/29/17 Vit C/E/Zn/Coppr/Lutein/Zeaxan 1 tab PO BID 07/29/17 07/29/17 [Preservision Areds 2 Softgel] <Alia Grider 07/29/17 19:17> Allergies Allergy/AdvReac Type Severity Reaction Status Date / Time codeine Allergy Intermediate MIGRAIINE Verified 07/29/17 18:29 diazepam Allergy Intermediate GOES CRAZY Verified 07/29/17 18:29 hydrocodone Allergy Intermediate GOES CRAZY Verified 07/29/17 18:29 pentazocine Allergy Intermediate HALLUCINATI Verified 07/29/17 18:29 ON temazepam Allergy Intermediate HALLUCINATI Verified 07/29/17 18:29 ON Penicillins Allergy Unknown Verified 07/29/17 18:29 adhesive tape AdvReac Intermediate Skin Peels Verified 07/29/17 18:29 cephalexin AdvReac Mild Itching Verified 07/29/17 18:29 clindamycin AdvReac Mild ITCHING Verified 07/29/17 18:29 <Alia Grider 07/29/17 19:17> Review of Systems Limitations: ROS unobtainable due to patient's medical condition <Alia Grider 07/29/17 19:17> [facility] Patient Stated Medical History Hearing Loss Yes Macular Degeneration Yes Hypertension Yes Valvular Heart Disease Yes: pt states she has a potential leaky mitral valve Other Cardiology Yes: palpitations with panic attacks Asthma Yes: w/o status asthmaticus (disorder) per h&p Sleep Apnea No Gastroesophageal Reflux Yes: tx after fundiplication Disease Ulcer Yes: PUD Other GI Yes: IBS, constipation Hx Incontinence Yes Hx Renal Disease No Osteoarthritis Yes: also osteopenia Anesthesia Reactions Yes: hard to wake up; history of severe itching in PACU; migraines Depression Yes Clinic Medical History (Last Reviewed 05/22/17 @ 10:26 by Nanda Cornell Manuel) Knee pain, right (Chronic Medical) Anxiety (Chronic Medical) Asthma (Chronic Medical) Depression (Chronic Medical) GERD (gastroesophageal reflux disease) (Chronic Medical) High blood pressure (Chronic Medical) High cholesterol (Chronic Medical) Inflammatory bowel disease (Chronic Medical) Macular degeneration (Chronic Medical) Osteoarthritis (Chronic Medical) Thyroid disease (Chronic Medical) Duodenal ulcer (Resolved Medical) <Alia Grider 07/29/17 19:17> Surgical History: Colonoscopy, X2, Rt knee scope 2009, Rt TKA 2009, Lt knee scope 2012, Cholecystectomy 2006, Breast Biopsy X4, CTR 1995 . EGD-2013 , appendectomy, cholecystectomy, RAZ- BSO , rt tka - <Alia Grider 07/29/17 19:17> Family History: Family History (Last Reviewed 05/22/17 @ 10:27 by Nanda Cornell, [facility]) Mother Thyroid disease Cancer of colon Bleeding disorder Father Heart failure High cholesterol High blood pressure Heart attack <Alia Grider 07/29/17 19:17> Family History Updates: Mother- Thyroid disease,Colon cancer,Bleeding disorder. Father- Heart failure,High cholesterol, High blood pressure,Heart attack < Alia Grider 07/29/17 19:17> - Social History Smoking status: Never smoker <Alia Grider 07/29/17 19:17> Substance use type: does not use <Alia Grider 07/29/17 19:17> Alcohol intake frequency: does not drink <Alia Grider 07/29/17 19:17> Housing: house <Alia Grider 07/29/17 19:17> Household members: none <Alia Grider 07/29/17 19:17> Current occupational status: retired <Alia Grider 07/29/17 19:17> Current residence: Apartment/Private Home <Alia Grider 07/29/17 19:17 > Physical Exam - Limitations Limitations: no limitations <Alia Grider 07/29/17 19:17> - General General appearance: alert, anxious, other (hyperverbal) <Alia Grider 07/29/17 19:17> - Normal Exams: Head:: Normocephalic without trauma <Alia Grider 07/29/17 19:17> Eyes:: Pupils are PERRLA w/ EOMI <Alia Grider 07/29/17 19:17> Chest/Respirations:: Clear all salazar, with good airflow, and symmetry bilaterally <Alia Grider 07/29/17 19:17> Cardiovascular:: Regular rate and rhythm, without murmur or gallop, Pulses 2+ all extremities, capillary refill, <2 seconds all extremities <Alia Grider 07/29/17 19:17> Abdomen:: Bowel sounds positive, soft, non-tender, non-distended <Alia Grider 07/29/17 19:17> Musculoskeletal:: No tenderness, or deformity noted, good range of motion, all extremities <Alia Grider 07/29/17 19:17> Integumentary:: No rashes <Alia Grider 07/29/17 19:17> Neurological:: Patient is alert, and oriented, cranial nerves, motor/sensory/ cerebellar, exams w/o gross deficits, to observation <Alia Grider 19:17> Psychiatric:: Patient exhibits, appropriate attention, emotion and affect < MargarettemickyAlia Mills 07/29/17 19:17> Course Vital Signs Temperature 97.5 F 07/29/17 17:42 Pulse Rate 76 07/29/17 17:42 Respiratory Rate 18 07/29/17 17:42 Blood Pressure 247/114 H 07/29/17 17:42 Pulse Oximetry 99 07/29/17 17:42 Temperature 97.5 F 07/29/17 17:42 Pulse Rate 70 07/29/17 22:00 Respiratory Rate 18 07/29/17 17:42 Blood Pressure 229/96 H 07/29/17 22:00 Pulse Oximetry 99 07/29/17 22:00 <Alia Grider 07/29/17 19:17> Dizziness - MDM Narrative Medical decision making narrative: Pt has drop of BP by 30 points after initial Labetalol dose. There is little change after second dose and pt is requesting something for her "migraine". Benadryl and Toradol ordered which pt refused the Toradol but did take the Benadryl. 3rd dose of Labetalol ordered when IV blew so pt did not receive See note above from Dr Eddy. Pt continues to have HTN and KARIMI with best BP of 208/84. Discussed admission with Dr Mendoza who will accept. Findings and plan discussed with pt and family who voice understanding. <Alia Grider - 07/29/17 22:46> After second IV is blown, patient's blood pressure was 216/96 after 2 doses of labetalol. Discussed options with the patient, she is electing one Percocet and her nightly dose of hydralazine in the ER at this time. <Chandrakant Eddy - 07/29/17 21:19> - Differential Diagnosis Likely: benign paroxysmal positional vertigo, orthostatic hypotension, cerebrovascular accident, transient cerebral ischemia <Alia Grider - 21:47> - Lab Data Attestation: I reviewed the patient's lab results. <Alia Grider - 07/29 21:47> Result diagrams: 07/29/17 19:25 07/29/17 19:25 <Alia Grider - 07/29/17 19:17> Lab Results 07/29/17 07/29/17 07/29/17 Range/Units 19:25 19:25 21:31 WBC 8.0 (4.5-11.0) T/MM3 RBC 4.45 (4.00-5.20) M/MM3 Hgb 13.5 (12-16) GM/DL Hct 42.3 (36-46) % MCV 95.1 (80-100) UM3 MCH 30.3 (26-34) UUG MCHC 31.9 (31-37) GM/DL RDW Std Deviation 45.6 (36.9-50.2) FL Plt Count 292 (130-400) T/MM3 MPV 10.0 (9.4-12.4) UM3 Immature Gran % (Auto) 0.1 (0.0-0.5) % Neut % (Auto) 69.9 H (33-66) % Lymph % (Auto) 22.5 L (23-45) % [place] % (Auto) 6.6 (0-9.0) % Eos % (Auto) 0.4 (0-4) % Baso % (Auto) 0.5 (0-2) % Neut # (Auto) 5.6 (1.8-7.7) T/MM3 Lymph # (Auto) 1.8 (1-4.8) T/MM3 [place] # (Auto) 0.5 (0-0.8) T/MM3 Eos # (Auto) 0.0 (0-0.5) T/MM3 Baso # (Auto) 0.0 (0-0.2) T/MM3 Abs Immat Gran (auto) 0.01 (0.00-0.03) T/MM3 Turbidity < 20 (0-20) Sodium 145 H (134-144) MEQ/L Potassium 3.2 L (3.6-5) MEQ/L Chloride 107 (98-107) MEQ/L Carbon Dioxide 25 (22-30) MEQ/L Anion Gap 13 (5-15) meq/L BUN 16.0 (7-17) MG/DL Creatinine 0.8 (0.7-1.2) mg/dL GFR Calculation 71 BUN/Creatinine Ratio 20 (6-26) RATIO Glucose 109 (65-110) MG/DL Calculated Osmolality 281 H (261-280) MOSM/KG Calcium 9.8 (8.4-10.2) MG/DL Total Bilirubin 0.30 (0.20-1.30) MG/DL Icterus Index < 2 (0-7) AST 25 (14-36) U/L ALT 19 (1-35) U/L Alkaline Phosphatase 119 (38-126) U/L Total Protein 7.7 (6.3-8.2) g/dL Albumin 4.4 (3.5-5.0) g/dL Globulin 3.3 (2.4-3.6) G/DL Albumin/Globulin Ratio 1.3 (1.1-2.2) RATIO Specimen Hemolysis < 15 (0-25) Ur Collection Type Urine, void-cc/notcc Urine Color Yellow (YELLOW) Urine Clarity Clear Urine pH 7.5 (5.0-8.0) Ur Specific [place] 1.010 L (1.015-1.025) Urine Protein Negative (NEGATIVE) Urine Glucose (UA) Negative (NEGATIVE) Urine Ketones Negative (NEGATIVE) Urine Occult Blood Negative (NEGATIVE) Urine Nitrate Negative (NEGATIVE) Urine Bilirubin Negative (NEGATIVE) Urine Urobilinogen 0.2 (NORMAL) EU/DL Ur Leukocyte Esterase Trace A (NEGATIVE) Urinalysis Comment Microscopic not ind. <Alia Grider - 07/29/17 22:46> - Radiology Data Attestation: I reviewed the patient's radiology results. (read per V rad) < Alia Grider 07/29/17 21:47> - EKG Data EKG #1 EKG shows normal: sinus rhythm <Alia Grider 07/29/17 21:47> Rate: normal <Alia Grider 07/29/17 21:47> Rhythm: NSR <Alia Grider 07/29/17 21:47> Disposition Clinical Impression: Dizziness, Headache, Essential (primary) hypertension <Alia Grider 07/29/17 22:46> Disposition: 02 To [facility] [place] <Alia Grider 07/29/17 22:46> Condition: Stable <Alia Grider 07/29/17 22:46> Instructions: <Alia Grider 07/29/17 19:17> Prescriptions: No Action Lutein 20 mg PO DAILY #0 Furosemide [Lasix 20 mg Tab] 10 mg PO PRN PRN PRN Reason: Prn Orders Zolpidem [Ambien] 5 mg PO HS Feverfew 760 mg PO Q2H PRN PRN Reason: Migraine Headache Bisacodyl [Laxative] 5 mg PO HS Lactobacillus Acidophilus [Probiotic] 2 cap PO DAILY Cholecalciferol (Vitamin D3) [Vitamin D3] 10,000 unit PO DAILY Calcium Carb/D3/Magnesium/Zinc [Hong Mag Zinc + D3 Tablet] 1 tab PO DAILY Loratadine [Claritin] 10 mg PO BID Vit C/E/Zn/Coppr/Lutein/Zeaxan [Preservision Areds 2 Softgel] 1 tab PO BID Propylene Glycol [Systane Balance] 1 drop EACH EYE QID Ketotifen Fumarate [Zaditor] 1 drop EACH EYE PRN PRN PRN Reason: Itching Hypochlorous Acid/Sodium Chlor [Avenova Lid & Lash [place]] 1 spray EACH EYE DAILY Hydralazine [Apresoline] 20 mg PO DAILY Cholestyramine (with Sugar) [Cholestyramine Packet] 4 gm PO DAILY Topiramate [Topamax] 50 mg PO BID LORazepam [Lorazepam] 0.5 mg PO HS Oxycodone/Acetaminophen 5/325 [Percocet 5/325] 1 - 2 tab PO Q6H PRN PRN Reason: Pain Doxylamine Succinate [Sleep Aid] 25 mg PO HS Fluticasone Propionate [Flonase Allergy Relief] 1 spray EA NOSTRIL BID #0 Flaxseed/Omega3,6,9/Fatty Acid [Flax Seed Oil 1,300 mg Softgel] 1 cap PO BID Carboxymethylcellulos/Glycerin [Refresh Optive Eye Drops] 1 drop EACH EYE QID Levothyroxine Sodium [Levothyroxine Sodium] 125 mcg PO DAILY <Alia Grider 07/29/17 19:17> Referrals: Roman Garcia MD [Primary Care Provider] - <Alia Grider 07/29/17 19:17> Forms: <Alia Grider 07/29/17 19:17> Time of Disposition: 22:46 <Alia Grider 07/29/17 22:46> - Seen By: midlevel and physician <Alia Grider 07/29/17 22:46>
[2017-07-29] MEDS ORDERED: NS 1,000 ML IV ONE (19:39)
[2017-07-29] MEDS ORDERED: DiphenhydrAMINE 50 MG/ML INJECTION IVP ONE (20:46)
[2017-07-29] MEDS ORDERED: KETOROLAC 30 MG/ML INJECTION IVP ONE (20:46)
--- NOTE | 2017-07-29 20:55 | CT Scan Report ---
Indication: KARIMI, HTN, LOC X 2 hours PROCEDURE: CT head/brain wo con: Encounter: Initial Comparison: Head CT dated June 10, 2010 Technique: Axial CT images through the head were performed without contrast. Iterative Reconstruction dose reducing technique was utilized. FINDINGS: Mild generalized atrophy. The ventricles are of normal size, shape, and contour for the patient's age. There are scattered areas of low attenuation in the white matter which most likely represent changes from chronic microvascular ischemia. The brainstem, cerebellum, and cerebral hemispheres otherwise have a normal morphology and CT attenuation. There is no evidence of midline displacement. No hemorrhage, signs of acute territorial stroke, mass effect, mass lesions, or edema is evident. The visualized portions of the skull base, midface, and calvarium demonstrate no abnormality. The paranasal sinuses are well aerated and free of significant disease. The tympanic and mastoid cavities appear normal. IMPRESSION: No acute intracranial abnormality or hemorrhage. There is a preliminary report by [facility]. .
[2017-07-29] MEDS ORDERED: HYDRALAZINE 10 MG TABLET PO ONE ×2 (21:16→21:17)
[2017-07-29] MEDS ORDERED: Oxycodone/Acetaminophen 5/325 1 TAB PO ONE (21:16)
[2017-07-29] MEDS ORDERED: LORazepam 0.5 MG TABLET PO ONE (22:37)
[2017-07-29] MEDS ORDERED: ONDANSETRON 4 MG/2 ML INJECTION IVP PRN (22:45)
[2017-07-29] MEDS ORDERED: KETOTIFEN 0.025% EYE DROPS 5ml EACH EYE PRN (22:45)
[2017-07-29 23:27] VITALS: BMI 30.5
[2017-07-30] MEDS: ZOLPIDEM 10 MG TABLET PO SCH ×2 (00:23→22:01)
[2017-07-30] MEDS: Oxycodone/Acetaminophen 5/325 1 TAB PO PRN ×5 (00:23→20:20)
--- NOTE | 2017-07-30 03:03 | History & Physical Report ---
History of Present Illness Date: 07/30/17 Chief complaint: KARIMI, HTN, dizziness HPI: 72 y/o w/ h/o migraines, HTN (labile), anxiety and multiple other medical issues presents w/ concern re: her elevated BP, KARIMI, dizziness and overall just not "feeling right". Some concern re: transient amnesia as expressed by daughter to ER provider, however the patient does not recall and patient's daughter not available during my visit w/ the patient. She is alert and oriented at time I met w/ her; denies cp, soa, dyspnea, n/v/d and f/c/s. She has some "tingling" diffusely in extremities, but mainly lower ; able to move all extremities and denies focal weakness though states her "ankles were weak" which made it hard to walk. BP reported to be 259/114 in ER, given IV labetalol 5mg x 2, po hydralazine 20mg x one, and Benadryl 50mg IV x one - BP came down to 208/86 in ER, and then down to 143/85 while I was visiting w/ her. Patient had CT head negative, UA negative; troponin was pending at time of transfer to floor. Percocet given for KARIMI in ER. Patient admitted to the hospitalist service for further evaluation and management. Review of Systems All systems PM: 10-point ROS was reviewed, no additional remarkable complaints except Past Medical History Medical History: Medical History (Last Reviewed 05/22/17 @ 10:26 by ELODIA Quintero) Knee pain, right (Chronic) Anxiety Asthma Depression GERD (gastroesophageal reflux disease) High blood pressure High cholesterol Inflammatory bowel disease Macular degeneration Osteoarthritis Thyroid disease Duodenal ulcer Surgical History: Colonoscopy, X2, Rt knee scope 2009, Rt TKA 2009, Lt knee scope 2012, Cholecystectomy 2006, Breast Biopsy X4, CTR 1994 . EGD-2013 , appendectomy, cholecystectomy, RAZ- BSO , rt tka 04-30-17 Family History: Family History (Last Reviewed 05/22/17 @ 10:27 by ELODIA Quintero) Mother Thyroid disease Cancer of colon Bleeding disorder Father Heart failure High cholesterol High blood pressure Heart attack Family History: As Above - Social History Smoking status: Never smoker Medications Home Medications Medication Instructions Recorded Confirmed Type Lutein 20 mg PO DAILY #0 01/20/13 07/29/17 History Fluticasone Propionate [Flonase 1 spray EA NOSTRIL BID #0 10/24/15 07/29/17 History Allergy Relief] Flaxseed/Omega3,6,9/Fatty Acid 1 cap PO BID 04/16/17 07/29/17 History [Flax Seed Oil 1,300 mg Softgel] Furosemide [Lasix 20 mg Tab] 10 mg PO PRN PRN 04/16/17 07/29/17 History Zolpidem [Ambien] 5 mg PO HS 04/16/17 07/29/17 History Bisacodyl [Laxative] 5 mg PO HS 07/29/17 07/29/17 History Calcium Carb/D3/Magnesium/Zinc 1 tab PO DAILY 07/29/17 07/29/17 History [Hong Mag Zinc + D3 Tablet] Carboxymethylcellulos/Glycerin 1 drop EACH EYE QID 07/29/17 07/29/17 History [Refresh Optive Eye Drops] Cholecalciferol (Vitamin D3) 10,000 unit PO DAILY 07/29/17 07/29/17 History [Vitamin D3] Cholestyramine (with Sugar) 4 gm PO DAILY 07/29/17 07/29/17 History [Cholestyramine Packet] Doxylamine Succinate [Sleep Aid] 25 mg PO HS 07/29/17 07/29/17 History Feverfew 760 mg PO Q2H PRN 07/29/17 07/29/17 History Hydralazine [Apresoline] 20 mg PO DAILY 07/29/17 07/29/17 History Hypochlorous Acid/Sodium Chlor 1 spray EACH EYE DAILY 07/29/17 07/29/17 History [Avenova Lid & Lash [place]] Ketotifen Fumarate [Zaditor] 1 drop EACH EYE PRN PRN 07/29/17 07/29/17 History LORazepam [Lorazepam] 0.5 mg PO HS 07/29/17 07/29/17 History Lactobacillus Acidophilus 2 cap PO DAILY 07/29/17 07/29/17 History [Probiotic] Levothyroxine Sodium 125 mcg PO DAILY 07/29/17 07/29/17 History [Levothyroxine Sodium] Loratadine [Claritin] 10 mg PO BID 07/29/17 07/29/17 History Oxycodone/Acetaminophen 5/325 1 - 2 tab PO Q6H PRN 07/29/17 07/29/17 History [Percocet 5/325] Propylene Glycol [Systane Balance] 1 drop EACH EYE QID 07/29/17 07/29/17 History Topiramate [Topamax] 50 mg PO BID 07/29/17 07/29/17 History Vit C/E/Zn/Coppr/Lutein/Zeaxan 1 tab PO BID 07/29/17 07/29/17 History [Preservision Areds 2 Softgel] Allergies Allergy/AdvReac Type Severity Reaction Status Date / Time codeine Allergy Intermediate MIGRAIINE Verified 07/29/17 18:29 diazepam Allergy Intermediate GOES CRAZY Verified 07/29/17 18:29 hydrocodone Allergy Intermediate GOES CRAZY Verified 07/29/17 18:29 pentazocine Allergy Intermediate HALLUCINATI Verified 07/29/17 18:29 ON temazepam Allergy Intermediate HALLUCINATI Verified 07/29/17 18:29 ON Penicillins Allergy Unknown Verified 07/29/17 18:29 adhesive tape AdvReac Intermediate Skin Peels Verified 07/29/17 18:29 cephalexin AdvReac Mild Itching Verified 07/29/17 18:29 clindamycin AdvReac Mild ITCHING Verified 07/29/17 18:29 Exam Vital Signs: Temperature 97.8 F 07/29/17 23:23 Pulse Rate 70 07/30/17 00:00 Respiratory Rate 16 07/29/17 23:23 Blood Pressure 143/84 H 07/29/17 23:23 Pulse Oximetry 98 07/29/17 23:23 Height/Weight/BMI: Height 1.65 m Weight 83.2 kg Body Mass Index 30.5 - Constitutional Present: no acute distress, well nourished, well developed, cooperative - Routine HEENT Exam Head: Present: normocephalic, atraumatic Eye: Present: EOMI, PERRL. Absent: conjunctival icterus, scleral injection ENT: Present: mucous membranes moist - Routine Neck Exam Present: supple. Absent: JVD - Routine Respiratory Exam Present: CTA bilaterally - Routine Cardiovascular Exam Present: RRR - Routine Abdominal Exam Present: soft, normoactive bowel sounds, non distended, non tender - Routine Extremities Exam Absent: cyanosis, clubbing, edema - Routine Neurological Exam Present: oriented X3, CN II-XII intact. Absent: sensory deficit, motor deficit - Routine Psychiatric Exam Present: normal affect, normal thought process, cooperative Results - Labs CBC & Chem 7: 07/30/17 04:36 07/30/17 04:36 Assessment and Plan Assessment and Plan: 1) Acute HTN Urgency 2) Acute KARIMI, dizziness and diffuse "tingling" sensation w/ ? of brief period of amnesia per ER provider's report but patient does not report it and patient's daughter not available at time I visited w/ patient 3) Anxiety 4) GERD 5) Migraines 6) Hypothyroid 7) HLD Plan: Admit to Hospitalist Telemetry Serial Troponins Monitor BP May need to add Norvasc or have take lasix on more regular basis (takes 10mg prn daily now) SCDs TSH in AM along w/ CBC, Mg, BMP Neurology consult - ? TGA vs. TIA vs. atypical migriane vs. d/t HTN urgency vs. other etiology Supportive care and home meds as indicated I have discussed the plan of care w/ the patient and she verbalized understanding and agreement. DVT Prophylaxis: SCD's Resuscitation Status: Full Code - Physician Narrative Physician: Didi Lin MD Narrative: Date: 07/30/17 Time:1410 Ms. Garcia was resting comfortably this morning when seen by me. She still complain of a headache. She has paperwork in front of her that she has been trying to work on. She denies fever or chills. She denies cold or flu like symptoms. She has markedly improved spinning of the inside of her head. She does not think it's her typical migraine. She does not think it's because of her blood pressures. She has been essentially noncompliant on blood pressure medications now and in the past. She "weaned herself off" all blood pressure medications that she was on previously. When started on hydralazine recently by Dr. Carreon it was supposed to be 4 times a day and she only takes two tablets at HS now. She does not take her blood pressure regularly. I did speak with Dr. Nelson this morning who recommended MRI of the head to rule out a stroke. He also recommended subsequent Decadron 2 mg BID PO if there is no evidence of stroke and we are unable to get control of her headache. Her blood pressures are better today. She got up with me and a walker and ambulated to the bathroom without difficulty. She reports she gets her eyes checked every 6 months. She denies any poor visual acuity or feeling eyestrain. She does have a left upper eyelid twitch. Her headache appears to be behind the left eye and frontal area. Her current medications include calcium carbonate/D3/magnesium/zinc 1 tablet daily Doxylamine Succinate 25mg HS Feverfew 760mg q2hr prn Lasix 10mg daily prn Hypochlorous acid/Sodium chloride 1 spray each eye daily Loratadine 10mg BID Lutein 20mg daily Vit C/E/Zn/Copper/Luetin/Zeaxan one BID Bisacodyl 5mg HS Refresh Optive Eye drops 1 drop each eye QID Vit D3 10,000 units daily Cholestyramine 4gm daily Flaxseed/[place] 3,6,9 Fatty acids 1 cap BID Fluticasone Propionate one spray each nostril BID Hydralazine 20mg HS Ketotifen Fumarate 1 drop each eye daily Levothyroxine 125mcg daily Lorazepam 0.5mg HS Percocet 5/325mg 1-2 tabs q6hr prn Propylene Glycol 1 drop each eye QID Topiramate 50mg BID Zolpidem 5mg HS Allergies Codeine, Diazepam, Hydrocodone, Pentazocine, Temazepam, PCN, Adhesive tape, Cephalexin, Clindamycin PMH: GERD Anxiety Asthma Depression HTN HLP IBD DJD with right knee pain, s/p recent Right knee redo surgery 04/30/17 Macular degeneration OA Hypothryoidism Duodenal ulcer Surgical Hx: Right TKA with recent repair Hyst Cholecystectomy Incidental appy Multiple lump biopsies, all benign Two C-Sections FM Hx: Father with CAD, CHF Mother with colon cancer, thyroid dz. ROS: negative except as noted in history of present illness. PE: Gen: alert and oriented. NAD, still with KARIMI. Skin: warm and dry HEENT: NC/AT PERRL, EOMI, Sclera, lids and conjunctiva wnl. MMM. OP clear. Neck: No JVD, Carotids 2+ without bruits Lungs: clear. No rales, rhonchi or wheezes CV: regular. No murmur, rub or gallop Abd: soft. +BS. NT/ND MS: No edema. Good strength and ROM Neuro: No focal deficits Psy: Appropriate mood and affect Assessment and Plan: 1) Acute HTN Urgency patient is noncompliant on medications and I cannot convince her otherwise. I did ask that she check her blood pressures more frequently during the day but she does not think she's going to be able to do it very frequently as she is just too busy. She then goes on to tell me that she's retired and doesn't do a whole lot. She likes holistic medicine and is just not real excited about taking more medications. We discussed the possibility of what to do if she should have evidence of a stroke on the MRI and I explained to her that my job was to give her the risks and benefits of medications and she can make her own decision on what she is willing to risk. She does not want to take any blood thinners or antiplatelet medications. She does not want to take any blood pressure medicines as she feels it makes her blood pressures higher. I did mention that Dr. Nelson suggested perhaps Botox injections and she refuses to do that as well. Neurology has been consulted and did recommend MRI, report pending. This is been done as well as a carotid ultrasound which was done and shows no significant stenosis. He also recommended the possibility of doing Decadron 2 mg BID if she's willing to take it. 2) Acute KARIMI, dizziness and diffuse "tingling" sensation w/ ? of brief period of amnesia. Patient reports that she lost part of an hour yesterday afternoon prior to being admitted. 3) Anxiety she does have considerable amount of anxiety. She does take benzodiazepines PRN. 4) GERD not on any medications, but really does not complain of any symptoms. 5) Migraines she states she takes a Percocet every evening and has for many many years and feels that is sufficient to treat her migraines. 6) Hypothyroid she is on Synthroid. Her TSH is elevated at 5.08. I will check her free T4 in the morning. 7) HLD -not on statin 8) prophylaxis SCD's The MRI did come back positive for a small acute infarct in the midbrain and para-thalamic area. I had a long discussion with Mrs. Mejia about antiplatelet therapy and she has agreed to go on Plavix 75 mg daily. She also has agreed to atorvastatin 80 mg daily. I'm going to start CoQ10 to increase the probability that shall continue this. In addition I offer Decadron as she continues to have a 10 out of 10 headache. She has agreed to try that as well. We will do permissive hypertension until and then will start treating her blood pressures. I also spoke with her daughter on the phone and explained the situation with her. I will order an echocardiogram tomorrow to complete the stroke workup. She did ask to go to rehab as she took a walk this afternoon without great success. I told her that was up to physical therapy and I do think that they recommended an inpatient physical therapy program so perhaps we can get that going tomorrow. Hospital Course Summary Disclaimer: The visit summary below is not to be considered part of the above Progress Note.
[2017-07-30] MEDS ORDERED: KETOTIFEN 0.025% EYE DROPS 5ml EACH EYE PRN (08:19)
[2017-07-30] MEDS: FLUTICASONE NASAL SPRAY 50mcg EA NOSTRIL SCH (08:44)
[2017-07-30] MEDS ORDERED: PROPYLENE GLYCOL EACH EYE SCH (09:00)
[2017-07-30] MEDS ORDERED: CHOLESTYRAMINE LIGHT 4 G PACKET PO SCH (09:00)
[2017-07-30] MEDS ORDERED: REFRESH CLASSIC Eye Drops 0.4ml EACH EYE SCH (09:00)
[2017-07-30] MEDS ORDERED: CARBOXYMETHYLCELLULOS EACH EYE SCH (09:00)
[2017-07-30] MEDS ORDERED: NON-FORMULARY MEDICATION 1 EACH EACH (Topiramate [Topamax] 50 MG) PO SCH (09:00)
[2017-07-30] MEDS ORDERED: --POM--LEVOTHYROXINE 125 MCG TABLET PO SCH (09:00)
[2017-07-30] MEDS ORDERED: GLYCERIN EACH EYE SCH (09:00)
[2017-07-30] MEDS ORDERED: NON-FORMULARY MEDICATION 1 EACH EACH (Cholecalciferol (Vitamin D3) [Vitamin D3] 10,000 UNI PO SCH (09:00)
[2017-07-30] MEDS ORDERED: LACTOBACILLUS ACIDOPHILUS PO SCH (09:00)
[2017-07-30] MEDS ORDERED: HYDRALAZINE 10 MG PO SCH (09:00)
[2017-07-30] MEDS ORDERED: [UNRECOGNIZED DRUG - OTHER] EACH EYE SCH (09:00)
[2017-07-30] MEDS ORDERED: [UNRECOGNIZED DRUG - REMARK] EA NOSTRIL SCH (09:00)
[2017-07-30] MEDS: CHOLECALCIFEROL 5000 UNIT PO SCH (09:35)
[2017-07-30] MEDS: FLAX SEED OIL PO SCH ×2 (09:39→22:13)
[2017-07-30] MEDS: PROBIOTIC PO SCH (09:41)
[2017-07-30] MEDS: TOPIRAMATE 50 MG PO SCH ×2 (09:44→22:13)
[2017-07-30] MEDS ORDERED: FEVERFEW PO PRN (11:37)
[2017-07-30] MEDS ORDERED: SYSTANE EYE DROPS 0.7ml EACH EYE PRN (11:40)
--- NOTE | 2017-07-30 12:58 | Ultrasound Report ---
Indication: TIA/CVA symptoms PROCEDURE: US carotid doppler BI: TECHNIQUE: Grayscale, color and duplex Doppler imaging was performed of the carotid systems bilaterally. Velocities in cm/sec - validated velocity measurements with angiographic measurements, velocity criteria are extrapolated from diameter data as defined by the Society of Radiologists in Ultrasound Consensus Conference Radiology 2003; 229;340-346. RIGHT: PSV ICA 68 EDV ICA 17 PSV CCA 59 EDV CCA 11 SVR 1.2 PSV ECA 60 ICA Diameter reduction 10%-30% (1.0-1.2 PSV<110)% LEFT: PSV ICA 58 EDV ICA 16 PSV CCA 69 EDV CCA 15 SVR 0.8 PSV ECA 56 ICA Diameter reduction <20% (0.8-1.0)% The right vertebral artery is patent with cephalic flow. The left vertebral artery is patent with cephalic flow. Mild atherosclerotic plaque. No elevated velocities. IMPRESSION: No hemodynamically significant carotid stenosis. .
--- NOTE | 2017-07-30 15:35 | Magnetic Resonance Report ---
Indication: TIA/CVA symptoms PROCEDURE: MR head/brain wo con: Encounter: Initial Comparisons: Head CT from yesterday Technique: Multiplanar, multisequence, MR imaging of the head without contrast was acquired. FINDINGS: Tiny area of diffusion restriction seen in the right. Thalamic region and right midbrain on axial diffusion-weighted image #11. The ventricles are of normal size, shape, and contour for the patient's age. There are small nonspecific punctate areas of T2-weighted and T2 FLAIR weighted signal abnormality in the deep frontoparietal white matter that most likely represent small vessel ischemic disease. This is of a degree that is considered to be normal for the patient's age. The brain stem, cerebellum, and cerebral hemispheres otherwise have a normal morphologic appearance as well as MR signal intensity on all pulse sequences. There is no evidence of an intracranial mass lesion, intracranial hemorrhage, or hydrocephalus. The visualized portions of the orbits, calvarium, paranasal sinuses, and skull base demonstrate no significant abnormality. IMPRESSION: Tiny area of acute infarct in the right mid brain and perithalamic region. This is in the MCA territory. .
--- NOTE | 2017-07-30 15:36 | Consultation ---
DATE OF CONSULTATION 07/30/[address] Carreon PATIENT'S CHIEF COMPLAINT Headache and dizziness. HISTORY OF PRESENT ILLNESS Patient is a 72-year-old female with history of chronic migraine. The patient presented to [facility] with acute onset dizziness described as a spinning sensation. She said that her body was spinning around her environment. This has been associated with a severe forehead headache which she never had before. The headache was more concentrated on the left compared to the right. She was told that she had some redness of the eye and swelling of the tissues around the eye. She also had a problem with concentration and memory lapse for most of the day yesterday. In the ER, she was found to have very high blood pressure in the 260/130 range. This has improved since then to 155/80. She had a CT of the head that showed no acute abnormalities. Her lab work showed some mild dehydration and hypernatremia problem. Her TSH was slightly elevated. The patient is doing a little bit better today. She has had less headache since yesterday. She did not have any more amnesia or memory loss problem. She is still having the dizziness and coordination problem which has affected her ability to walk. She denies having any tinnitus or ear problem. PHYSICAL EXAMINATION On physical examination, the patient was awake, alert, oriented x3. Pupils were round, reactive and equal. Extraocular muscles were intact. Visual field was full. Speech was fluent. Motor was 5/5 in all extremities. Sensory examination was symmetric to light touch and pinprick. Deep tendon reflexes were 2/4. Plantar reflexes were in flexion bilaterally. Coordination for [id number] was borderline. The patient was having some difficulty moving around due to a spinning sensation in her head. She also had some mild difficulty finding words. ASSESSMENT 1. Acute migrainous headache associated with severe dizziness, mild amnesia and coordination problem. This can be associated with hypertensive encephalopathy due to severely elevated blood pressure. 2. We cannot rule out a small vessel ischemic stroke causing the patient to have dizziness and coordination problem. PLAN 1. Obtain an MRI of the brain to rule out acute stroke. 2. Start patient on Decadron 2-4 mg p.o. b.i.d. to help break the cycle of headaches and dizziness if possible. 3. The patient normally takes one Percocet at night for chronic headache. This can be continued for now. 4. Consider Botox for chronic headache in the outpatient setting if the patient is agreeable. MARY
[2017-07-30] MEDS ORDERED: HYDRALAZINE 10 MG PO PRN (16:11)
[2017-07-30] MEDS: COENZYME Q-10 200mg TABLET PO SCH (16:53)
[2017-07-30] MEDS: CLOPIDOGREL 75 MG TABLET PO SCH (16:53)
[2017-07-30] MEDS ORDERED: ZOLPIDEM 10 MG TABLET PO SCH (21:00)
[2017-07-30] MEDS: DEXAMETHASONE 1 MG TABLET PO SCH (22:00)
[2017-07-30] MEDS: LORazepam 1 MG TABLET PO SCH (22:00)
[2017-07-30] MEDS: ATORVASTATIN 40 MG TABLET PO SCH (22:01)
[2017-07-30] MEDS: Bisacodyl EC TAB 5 MG TABLET PO SCH (22:01)
[2017-07-30] MEDS: --POM--LEVOTHYROXINE 125 MCG TABLET PO SCH (22:13)
[2017-07-31] MEDS ORDERED: SALINE FLUSH 10ml SYRINGE ONE (09:00)
[2017-07-31] MEDS: Oxycodone/Acetaminophen 5/325 1 TAB PO PRN ×3 (09:37→21:39)
[2017-07-31] MEDS: COENZYME Q-10 200mg TABLET PO SCH (10:24)
[2017-07-31] MEDS: DEXAMETHASONE 1 MG TABLET PO SCH ×2 (10:24→22:03)
[2017-07-31] MEDS: CLOPIDOGREL 75 MG TABLET PO SCH (10:25)
[2017-07-31] MEDS: CHOLECALCIFEROL 5000 UNIT PO SCH (10:30)
[2017-07-31] MEDS: PROBIOTIC PO SCH (10:30)
[2017-07-31] MEDS: FLAX SEED OIL PO SCH ×2 (10:30→22:03)
[2017-07-31] MEDS: TOPIRAMATE 50 MG PO SCH ×2 (10:31→22:04)
[2017-07-31] MEDS: FLUTICASONE NASAL SPRAY 50mcg EA NOSTRIL SCH (10:33)
[2017-07-31] MEDS: CHOLESTYRAMINE LIGHT 4 G PACKET PO SCH (14:38)
[2017-07-31] MEDS ORDERED: FUROSEMIDE 20 MG TABLET PO PRN (14:45)
--- NOTE | 2017-07-31 15:00 | Progress Note ---
- Date 07/31/17 Subjective: Ms. Mejia is a 72-year-old female with history of anxiety, migraines, depression, hypertension, dyslipidemia, inflammatory bowel disease, hypothyroidism, history of duodenal ulcer, and macular degeneration. She presented to the emergency room on the complaining of elevated blood pressures, headaches, dizziness and overall just not feeling right. She does report at least part of an hour that she lost and is not sure what happened during that time. She was admitted by the [facility] hospitalists. When seen by me the following morning she was resting comfortably but still complaining of a headache. She is quite anxious and is trying to work on some paperwork for upcoming events that she is going to be missing because of her hospitalization. She did not think this was her typical migraines. She also states that she doesn 't think it's her blood pressure but she did become a little concerned when it was so terribly high on presentation. She is relatively noncompliant on her medications and states she would prefer the holistic method. An MRI confirmed that she had a small stroke in the midbrain and parathalamic area. We had a long conversation on treatment plans and further workup. She developed epistaxis with baby aspirin in the past and refuses to resume that. She is willing to try the Plavix. She's willing to try Statin. Her carotids Doppler did not show any significant disease. Her echo has been done but not read. Neurology was consult in and recommended Decadron for her headache. Physical therapy was consulted. Today, her headache is a bit better. She apparently called her eye doctor telling her eye doctor that she had an ophthalmic stroke. I did call Dr. Gambino and reassured her that it was not an ophthalmic stroke. She currently denies fever or chills. She denies shortness of breath. She did walk with physical therapy today and denies dyspnea with exertion. She is still fairly unstable on her feet and is using a walker. She denies coffer sputum production. She denies chest pain or palpitations. She denies nausea, vomiting, diarrhea or constipation, but no BM since admission. SHe is passing gas. She denies any problems swallowing. Objective Vital signs: Temperature 96.3 F L 07/31/17 12:00 Pulse Rate 68 07/31/17 12:00 Respiratory Rate 16 07/31/17 12:00 Blood Pressure 167/73 H 07/31/17 12:00 Pulse Oximetry 99 07/31/17 12:00 Height/Weight/BMI: Weight 83 kg Comments: Gen: alert and oriented. NAD, still with KARIMI but it is slightly better. Skin: warm and dry HEENT: NC/AT PERRL, EOMI, Sclera, lids and conjunctiva wnl. MMM. OP clear. Neck: No JVD, Carotids 2+ without bruits Lungs: clear. No rales, rhonchi or wheezes CV: regular. No murmur, rub or gallop Abd: soft. +BS. NT/ND MS: No edema. Good strength and ROM Neuro: No focal deficits Psy: anxious, dramatic Results - Labs CBC & Chem 7: 07/30/17 04:36 07/31/17 04:13 Assessment and Plan Assessment and Plan: 1) Small midbrain and parathalamic stroke -On plavix, statin -Will start BP control in am -Echo read pending -Carotids unremarkable -On telemetry without evidence of afib 2) Acute HTN Urgency on admission -Will need to encourage medication compliance 3) Anxiety 4) GERD-no treatment for this at home 5) Migraines -Pt reports percocet works -neurology suggested possible Botox injection and she refuses that -patient started on Decadron with only minimal improvement 6) Hypothyroid -continue supplements -TSH mildly elevated, T4 pending 7) HLD -started on the Statin 8) macular degeneration -will continue her current medications 9) disposition -will await physical therapy recommendations on whether not she meets criteria for inpatient rehab 10) prophylaxis -SCD's - Physician Narrative Narrative: Date: 07/31/17 Time: 1451 Hospital Course Summary Disclaimer: The visit summary below is not to be considered part of the above Progress Note.
--- NOTE | 2017-07-31 15:42 | Progress Note ---
DATE 07/31/[address] Carreon CHIEF COMPLAINT Headache and dizziness. HISTORY OF PRESENT ILLNESS Patient continues to have a left frontal headache. She feels that her eye is going to pop outside of her head. The MRI of the brain showed evidence of acute ischemic stroke affecting the right thalamus and mid-brain area. The patient's dizziness and coordination problem has not improved. She continues to have difficulty standing and walking, in particular. She feels that her leg cramp up every time she stands up. Her blood pressure has been controlled with medication. Her lab work has been improving also. She continues to take dexamethasone to help with headache and dizziness. She was also started on Plavix yesterday to help with stroke prevention. Her examination, except for gait problem and balance, has been overall normal. ASSESSMENT 1. Acute ischemic stroke affecting the right thalamus and mid-brain area. This has been associated with severe headache and balance and coordination problems. The patient's condition has been stable since admission with no significant improvement in her balance, in particular. PLAN 1. Continue Plavix for stroke prevention. 2. Continue dexamethasone for headache and dizziness. 3. Physical and occupational therapy and possible rehab transfer to help with balance problems. [facility]
[2017-07-31] MEDS ORDERED: LORazepam 1 MG TABLET PO PRN (15:56)
[2017-07-31] MEDS: SODIUM CHLOR PO SCH (18:26)
[2017-07-31] MEDS: HYPOCHLOROUS ACID PO SCH (18:26)
[2017-07-31] MEDS: LUTEIN 20 MG CAPSULE PO SCH (18:27)
[2017-07-31] MEDS: CALCIUM MAGNESIUM ZINC PO SCH (18:27)
[2017-07-31] MEDS ORDERED: DOXYLAMINE 25 MG TABLET PO SCH (21:00)
[2017-07-31] MEDS: --POM--LEVOTHYROXINE 125 MCG TABLET PO SCH (21:38)
[2017-07-31] MEDS: ATORVASTATIN 40 MG TABLET PO SCH (21:38)
[2017-07-31] MEDS: Bisacodyl EC TAB 5 MG TABLET PO SCH (21:38)
[2017-07-31] MEDS: ZOLPIDEM 10 MG TABLET PO SCH (21:39)
[2017-07-31] MEDS: LORazepam 1 MG TABLET PO SCH (21:40)
[2017-07-31] MEDS: LORATADINE 10 MG TABLET PO SCH (22:03)
[2017-08-01 08:24] VITALS: RESP 18
[2017-08-01] MEDS ORDERED: [UNRECOGNIZED DRUG - OTHER] PO SCH (09:00)
[2017-08-01] MEDS: COENZYME Q-10 200mg TABLET PO SCH (09:24)
[2017-08-01] MEDS: CLOPIDOGREL 75 MG TABLET PO SCH (09:24)
[2017-08-01] MEDS: Oxycodone/Acetaminophen 5/325 1 TAB PO PRN ×2 (09:24→17:03)
[2017-08-01] MEDS: DEXAMETHASONE 1 MG TABLET PO SCH (09:24)
[2017-08-01] MEDS: CALCIUM MAGNESIUM ZINC PO SCH (09:26)
[2017-08-01] MEDS: CHOLECALCIFEROL 5000 UNIT PO SCH (09:26)
[2017-08-01] MEDS: FLAX SEED OIL PO SCH (09:27)
[2017-08-01] MEDS: FLUTICASONE NASAL SPRAY 50mcg EA NOSTRIL SCH (09:28)
[2017-08-01] MEDS: HYPOCHLOROUS ACID PO SCH (09:29)
[2017-08-01] MEDS: TOPIRAMATE 50 MG PO SCH (09:29)
[2017-08-01] MEDS: LORATADINE 10 MG TABLET PO SCH (09:29)
[2017-08-01] MEDS: SODIUM CHLOR PO SCH (09:29)
[2017-08-01] MEDS: PROBIOTIC PO SCH (09:29)
[2017-08-01] MEDS: LUTEIN 20 MG CAPSULE PO SCH (09:29)
[2017-08-01] MEDS: FEVERFEW PO PRN ×2 (09:30→14:19)
[2017-08-01] MEDS: CHOLESTYRAMINE LIGHT 4 G PACKET PO SCH (12:05)
[2017-08-01 12:12] VITALS: TEMP 98.1
[2017-08-01] MEDS ORDERED: AMLODIPINE 5 MG TABLET PO SCH (15:00)
[2017-08-01] MEDS ORDERED: LISINOPRIL 20 MG TABLET PO SCH (15:00)
--- NOTE | 2017-08-01 15:04 | Discharge Summary ---
Discharge Information Date of admission: 07/31/17 08:44 Anticipated date of discharge: 08/01/17 Attending Physician: Didi Lin MD Primary care physician: Roman Garcia MD Consults: 08/01/17 IRU Screening [Inpatient Rehab Screening] [CONS] Routine 07/30/17 Dr. Tanisha Nelson Small midbrain and parithalamic stroke acute on chronic headaches hypertensive urgency hypertension gastroesophageal reflux disease anxiety hypothyroid hyperlipidemia macular degeneration inflammatory bowel disease - Laboratory Labs: 08/01/17 03:56 08/01/17 03:56 - Radiology Radiology: 07/29/17 CT of the brain showing no acute intracranial abnormality or hemorrhage 07/30/17 MRI of the head/brain IMPRESSION: Tiny area of acute infarct in the right mid brain and perithalamic region. This is in the MCA territory. 07/30/17 bilateral carotid ultrasound showing no hemodynamically significant carotid stenosis. 07/31/17 transthoracic echocardiogram showing normal EF, mild aortic insufficiency and negative bubble study History of Present Illness HPI: 72 y/o w/ h/o migraines, HTN (labile), anxiety and multiple other medical issues presents w/ concern re: her elevated BP, KARIMI, dizziness and overall just not "feeling right". Some concern re: transient amnesia as expressed by daughter to ER provider, however the patient does not recall and patient's daughter not available during my visit w/ the patient. She is alert and oriented at time I met w/ her; denies cp, soa, dyspnea, n/v/d and f/c/s. She has some "tingling" diffusely in extremities, but mainly lower ; able to move all extremities and denies focal weakness though states her "ankles were weak" which made it hard to walk. BP reported to be 259/114 in ER, given IV labetalol 5mg x 2, po hydralazine 20mg x one, and Benadryl 50mg IV x one - BP came down to 208/86 in ER, and then down to 143/85 while I was visiting w/ her. Patient had CT head negative, UA negative; troponin was pending at time of transfer to floor. Percocet given for KARIMI in ER. Patient admitted to the hospitalist service for further evaluation and management. Objective Vital signs: Temperature 98.1 F 08/01/17 12:00 Pulse Rate 68 08/01/17 12:00 Respiratory Rate 18 08/01/17 08:00 Blood Pressure 173/71 H 08/01/17 12:00 Pulse Oximetry 100 08/01/17 12:00 Height/Weight/BMI: Weight 83.2 kg Comments: Gen: alert and oriented. NAD, still with KARIMI but it is slightly better. Skin: warm and dry HEENT: NC/AT PERRL, EOMI, Sclera, lids and conjunctiva wnl. MMM. OP clear. Neck: No JVD, Carotids 2+ without bruits Lungs: clear. No rales, rhonchi or wheezes CV: regular. No murmur, rub or gallop Abd: soft. +BS. NT/ND MS: No edema. Good strength and ROM Neuro: No focal deficits Psy: anxious, dramatic Hospital Course Ms. Mejia was admitted from the ER after presenting with headache with tingling in her extremities, inability to control her ankles and elevated blood pressure. Her blood pressure in the ER was his highest 265/132. The patient states that in the past she has been on multiple blood pressure medications but they always caused her blood pressures to go off instead of down. With the assistance of charito MCKEON she chose to titrate herself off all blood pressure medications. She did not routinely check her blood pressures but tells me that they get checked every time she goes to the chiropractor which is about once a week. She prefers holistic medicine. Her blood pressure was brought down with medications here. Neurology was consult it and recommended an MRI of the brain which was performed and indeed showed a small midbrain stroke as well as a perithalamic stroke. This came as quite a shock to her. We had a long discussion regarding antiplatelet therapy as in the past she developed epistaxis with aspirin and has refused resume and aspirin. I gave her the option of Plavix which she did agree to. I also told her she needs to be on a statin and she has agreed to that as well. We did a carotid ultrasound which did not show any evidence of significant stenosis. Her echo did not show any evidence of a PFO or ASD. We allow permissive hypertension until today and I have now placed her on lisinopril and low dose Norvasc for blood pressure control. She will need close follow-up of her blood pressures on these medications. I have asked her to take her blood pressure with her home monitor a minimum of once a day and to write these down to take with her to see her primary care in follow-up. Neurology offered Botox injections for her migraines and she has refused that. She states the Percocet has been working for years and she simply wants to continue it. Physical therapy worked with her during this stay and felt she was safe to be discharged to home with outpatient physical therapy. I spoke with her daughter regarding her moms medical noncompliance and she's going to try to assist in helping her mom be more compliant. Time spent with patient: 25 - 35 minutes Resuscitation Status: Full Code Discharge Plan - Discharge Disposition Disposition: Discharged Home, Self-Care *Condition: Stable Reason For Visit (Visit label in EMR): Stroke, HTN urgency, KARIMI, dizziness - Discharge Medications *Discharge Medications: New Acidoph/L.bulg/Bif.b/S.thermop [Bacid Caplet] 2 cap PO DAILY tablet Amlodipine [Norvasc] 5 mg PO DAILY #30 tab Atorvastatin [Lipitor] 80 mg PO HS #30 tab Clopidogrel [Plavix] 75 mg PO DAILY #30 tab Coenzyme Q-10 [Co Q-10] 200 mg PO DAILY #30 tab Hydralazine [Apresoline] 10 mg PO TIDWM PRN #60 tab PRN Reason: SBP >220 or DBP >110 Lisinopril [Prinivil] 20 mg PO DAILY #30 tab Continue Lutein 20 mg PO DAILY #0 Furosemide [Lasix 20 mg Tab] 10 mg PO PRN PRN PRN Reason: Prn Orders Zolpidem [Ambien] 5 mg PO HS Feverfew 760 mg PO Q2H PRN PRN Reason: Migraine Headache Bisacodyl [Laxative] 5 mg PO HS Lactobacillus Acidophilus [Probiotic] 2 cap PO DAILY Cholecalciferol (Vitamin D3) [Vitamin D3] 10,000 unit PO DAILY Calcium Carb/D3/Magnesium/Zinc [Hong Mag Zinc-D3 Tablet] 1 tab PO DAILY Loratadine [Claritin] 10 mg PO BID Vit C/E/Zn/Coppr/Lutein/Zeaxan [Preservision Areds 2 Softgel] 1 tab PO BID Propylene Glycol [Systane Balance] 1 drop EACH EYE QID Ketotifen Fumarate [Zaditor] 1 drop EACH EYE PRN PRN PRN Reason: Itching Hypochlorous Acid/Sodium Chlor [Avenova Lid-Lash [place]] 1 spray EACH EYE DAILY Cholestyramine (with Sugar) [Cholestyramine Packet] 4 gm PO DAILY Topiramate [Topamax] 50 mg PO BID LORazepam [Lorazepam] 0.5 mg PO HS Oxycodone/Acetaminophen 5/325 [Percocet 5/325] 1 - 2 tab PO Q6H PRN PRN Reason: Pain Doxylamine Succinate [Sleep Aid] 25 mg PO HS Fluticasone Propionate [Flonase Allergy Relief] 1 spray EA NOSTRIL BID #0 Flaxseed/Omega3,6,9/Fatty Acid [Flax Seed Oil 1,300 mg Softgel] 1 cap PO BID Carboxymethylcellulos/Glycerin [Refresh Optive Eye Drops] 1 drop EACH EYE QID Levothyroxine Sodium 125 mcg PO DAILY Discontinued Hydralazine [Apresoline] 20 mg PO DAILY - Discharge Packet/Instructions *Diet: Low sodium *Activity: Outpt physical therapy *Pain Management/Treatment: Tylenol, percocet *Wound Care: N/A *Expected Signs/Symptoms: Worsening KARIMI, Neuro status changes *Notify Physician if: Worsening Head aches, neurological changes *During Business Hours Contact: PCP *After Business Hours Contact: call center trainer physician for PCP *Pending Lab/Results: No Pending Lab (Free T4) - Referrals/Follow Up *Referrals/Follow Up: Roman Garcia MD [Primary Care Provider] - 1 Week - Patient Handouts Patient Handouts: Ischemic Stroke (GEN), Chronic Hypertension (GEN) - Dismissal Complete Discharge Instructions are:: Complete Physician Narrative - Narrative Attestation Narrative: Date: 08/01/17 Time: 1087
[2017-08-01 15:31] VITALS: BP 156/35; PULSE 71; O2SAT 98
--- NOTE | 2017-08-02 11:22 | Echocardiogram ---
DATE OF PROCEDURE July 31, [address] Didi Lin This is a two-dimensional echo with spectral Doppler, color-flow and M-mode. It was supposed to be a bubble study as well, but I did not see a clear injection of the agitated saline. Left atrial dimension is normal. Left ventricular end-diastolic dimension is normal. Left ventricle wall thickness is normal. LV systolic function is normal with ejection fraction of about 70%. Right atrium is normal. Right ventricle is normal. Aortic root dimension is normal. Mitral valve is morphologically normal with trace of mitral regurgitation. Aortic valve is a trileaflet structure with no stenosis. Mild aortic insufficiency is present. Tricuspid valve shows no tricuspid regurgitation. Pulmonary valve shows no pulmonary insufficiency. There is no pericardial effusion. Again, this study was supposed to be an agitated saline study, however, I did not see clear features of agitated saline injection. IMPRESSION 1. Normal LV systolic function with ejection fraction of about 70%. 2. Grossly no intracardiac thrombus or mass. 3. Mild aortic insufficiency. 4. Trace of mitral regurgitation. [facility]
== END 2017-08-01 18:05 | disposition home or self-care (01) | DRG 66 ==
LOC: ED 17:42 → MED 17:42 → SUATTDRO 22:47 → MED 23:10
PROVIDERS: ADMIT Internal Medicine; ATTEND Internal Medicine Cardiovascular Disease